=== PATIENT | female | born 2000 | race Caucasian/White ===

== ENCOUNTER 2024-04-05 16:08 | Inpatient (IN) | payer OTHER, SELFPAY ==
[2024-04-05] VITALS (15 sets, daily range): BP systolic 123–141; BP diastolic 61–102; PULSE 87–112; RESP 14–18; TEMP 37–37.7; O2SAT 98–99; BMI 32.7
[2024-04-05 16:43] LABS: ROM Internal Control Test YES-OK TO RESULT pt. (Internal QC)
[2024-04-05 16:44] LABS: ROM Patient Test POSITIVE (Negative)
[2024-04-05 16:58] LABS: Absolute Neutrophil Count 7.2 X10^3/uL (2.0-7.7); Basophil# 0.02 X10^3/uL; Basophil% 0.2 % (0-1); Eosinophil# 0.05 X10^3/uL; Eosinophils% 0.5 % (0-5); Hematocrit 37.9 % (37-47); Hemoglobin 11.6 g/dL (12.0-15.0); Lymphocyte % 21.6 % (19-41); Mean Corp Hgb Conc 30.6 g/dL (32-36); Mean Corpuscular Volume 81.7 fL (81-99); Mean Platelet Vol. 12.4 fl (6.2-12.0); Monocyte# 0.66 X10^3/uL; Monocyte% 6.5 % (0-10); NRBC Flagged by Analyzer 0 % (0-5); Neutrophil % 70.5 % (47-70); Platelet Count 220 K/mm3 (150-450); RBC Distribution Width CV 15.3 % (11.6-14.6); RBC Distribution Width SD 44.3 fl (35.1-43.9); Red Blood Count 4.64 M/mm3 (4.2-5.4); White Blood Count 10.2 K/mm3 (4.4-11.0)
[2024-04-05] MEDS: Lactated Ringers 1,000 ML 999 ML IV (17:00)
[2024-04-05 17:11] LABS: AST(SGOT) 15 U/L (15-37); Alanine Aminotransfer ALT/SGPT 15 U/L (13-56); EST Glomerular Filtration Rate 110 mL/min (>60); Est Glom Filt Rate - Afr Amer 133 mL/min (>60); Estimated Creatinine Clearance 147.76 ml/min; Uric Acid 3.9 mg/dL (2.6-6.0)
[2024-04-05 17:38] LABS: Syphilis Antibodies Non-reactive
[2024-04-05 18:18] LABS: Protein, Urine (Random) 17.9 mg/dL (<11.9); Protein:Creat Ratio 199 mg/g CRE (0-200)
[2024-04-05] MEDS: Oxytocin 10 UNITS/ML Vial IM (19:05)
[2024-04-05] MEDS: Oxytocin 15 Units/NS 250ml 15 UNITS/250 ML IV.SOLN 83 UNITS IV (19:10)
--- NOTE | 2024-04-05 20:48 | PCM.HP.OB ---
HPI - General General Date of Admission: 04/05/24 HPI Narrative RAJANI DO, is a 24 F who presents at at 39w4d in active labor with SROM. Maternal Data Information ANTOINE Calculator Estimated Delivery Date Method Current WG Current Estimate 04/08/24 Manual 39w 4d PFSH PFSH Allergy/AdvReac Type Severity Reaction Status Date / Time No Known Allergies Allergy Verified 04/05/24 20:10 Social History Smoking Status: Never smoker History Elective abortions Hx Para 0 Spontaneous abortions Hx # Term Pregnancies Ectopic pregnancies Hx # Pregnancies Multiple births # of living children NST FHR Rate Baby A Baseline: 155 Variability:: Moderate Accelerations:: 15 x 15 Decelerations:: None FHR Category:: Category I Uterine Activity:: every 3 minutes, strong Vital Signs Vital Signs Vital Signs: 04/05/24 15:54 04/05/24 15:54 04/05/24 15:54 Temperature Temperature Source Pulse Rate 93 Respiratory Rate Blood Pressure 135/102 H BP Systolic 135 BP Diastolic 102 Pulse Ox 99 04/05/24 15:54 04/05/24 15:54 04/05/24 15:54 Temperature Temperature Source Temporal Pulse Rate 93 Respiratory Rate 14 Blood Pressure BP Systolic BP Diastolic Pulse Ox 04/05/24 15:54 04/05/24 15:54 04/05/24 15:55 Temperature 98.6 F Temperature Source Pulse Rate Respiratory Rate Blood Pressure 139/92 H BP Systolic 139 BP Diastolic 92 Pulse Ox 99 04/05/24 15:55 04/05/24 17:32 04/05/24 17:32 Temperature Temperature Source Pulse Rate 87 112 H Respiratory Rate Blood Pressure 133/87 H BP Systolic 133 BP Diastolic 87 Pulse Ox 04/05/24 17:33 04/05/24 17:33 04/05/24 19:15 Temperature 99.2 F H Temperature Source Pulse Rate Respiratory Rate 16 Blood Pressure 123/69 H BP Systolic 123 BP Diastolic 69 Pulse Ox 04/05/24 19:15 04/05/24 19:31 04/05/24 19:31 Temperature Temperature Source Pulse Rate 106 H 95 Respiratory Rate Blood Pressure 132/88 H BP Systolic 132 BP Diastolic 88 Pulse Ox 04/05/24 19:32 04/05/24 19:32 04/05/24 19:32 Temperature Temperature Source Temporal Pulse Rate 99 Respiratory Rate Blood Pressure BP Systolic BP Diastolic Pulse Ox 98 04/05/24 19:32 04/05/24 19:32 04/05/24 19:32 Temperature 99.9 F H Temperature Source Temporal Pulse Rate Respiratory Rate 16 Blood Pressure BP Systolic BP Diastolic Pulse Ox 04/05/24 19:32 04/05/24 19:32 04/05/24 19:46 Temperature 99.9 F H Temperature Source Pulse Rate Respiratory Rate 16 Blood Pressure 137/77 H BP Systolic 137 BP Diastolic 77 Pulse Ox 04/05/24 19:46 04/05/24 19:46 04/05/24 19:46 Temperature Temperature Source Pulse Rate 96 Respiratory Rate 16 16 Blood Pressure BP Systolic BP Diastolic Pulse Ox 04/05/24 20:00 04/05/24 20:00 04/05/24 20:00 Temperature Temperature Source Pulse Rate 96 Respiratory Rate 18 Blood Pressure 131/75 H BP Systolic 131 BP Diastolic 75 Pulse Ox 04/05/24 20:00 04/05/24 20:15 04/05/24 20:15 Temperature Temperature Source Pulse Rate 90 Respiratory Rate 18 Blood Pressure 134/78 H BP Systolic 134 BP Diastolic 78 Pulse Ox 04/05/24 20:15 04/05/24 20:30 04/05/24 20:30 Temperature Temperature Source Pulse Rate 90 Respiratory Rate 16 Blood Pressure 141/65 H BP Systolic 141 BP Diastolic 65 Pulse Ox 04/05/24 20:45 04/05/24 20:45 Temperature Temperature Source Pulse Rate 91 Respiratory Rate Blood Pressure 135/61 H BP Systolic 135 BP Diastolic 61 Pulse Ox Weight Weight: 209 lb Body Mass Index (BMI) 32.7 Physical Exam Const alert and oriented x3 General Appearance: cooperative Orientation / Consciousness: awake, oriented to person, oriented to place and oriented to time Exam Limitations: no limitations HEENT normocephalic Head and Scalp: normal to inspection, normocephalic and atraumatic Face and Sinus: normal facial exam Eyes General Eye: normal appearance of both eyes Neck full ROM Chest Chest: symmetrical chest wall rise Resp normal respiratory effort GI normal to inspection, nondistended, normoactive bowel sounds and non-tender appearance of the vagina normal Bladder / Kidney Exam: no CVA tenderness Back/Spine normal ROM Extremity normal to inspection and full ROM Skin no rashes or lesions noted Neuro oriented x3 and moves all extremities Sensorium / Orientation: awake, alert and oriented to person Labs Labs Labs: Blood Type O POSITIVE Antibody Screen NEGATIVE Hct 37.9 % (37-47) Hgb 11.6 g/dL (12.0-15.0) L Syphilis Total Ab Non-reactive RPR negative 1hr GCT negative Rubella Immune HBsAG negative HepC negative HIV negative O positive GC/CT negative Assessment & Plan (1) Active labor at term: (2) SROM (spontaneous rupture of membranes): PLAN: Plan 1) Admit to labor and delivery 2) Routine labs 3) Continuous EFM 4) Would like unmedicated 5) collaborative physician and notified of patient status, above assessment, and plan.
--- NOTE | 2024-04-05 20:53 | OB.VAGDELI_ITS ---
Maternal Data Information ANTOINE Calculator Estimated Delivery Date Method Current WG Current Estimate 04/08/24 Manual 39w 4d Vaginal Delivery Maternal Presentation Maternal Presentation: Active Labor and Spontaneous Rupture of Membranes Vaginal Delivery Information Procedure Performed: Spontaneous Vaginal Delivery Date of Procedure: 04/05/24 Pre-Procedure Diagnosis: SROM, active labor at term Post-Procedure Diagnosis: , first degree perineal laceration Type of anesthesia: None Estimated Blood Loss: 300 ml Time of Delivery: 19:01 Findings Description of procedure: Progressed to complete with urge to push. Unmedicated. of viable male infant over first degree perineal laceration. APGARS 8,9 respectively. Infant head delivered with body not forthcoming, McRobert's position and body delivered, mild shoulder dystocia. Placed on maternal abdomen, strong cry. Mouth and nares suctioned for secretions. Pitocin started for active 3rd stage management. Cord doubly clamped and cut by FOB after pulsations ceased, delayed cord clamping. Placenta delivered intact via lyon, 3 vessel cord intact. Perineum inspected and revealed first degree perineal laceration. Repaired with 3.0 vicryl rapide, without anesthesia with patient consent. Fundus firm and hemostasis achieved. EBL 300 ml. Mom and baby stable, planning to breastfeed. Hollie snow bonding well. notified of delivery. Presentation: Vertex and LUPE Amniotic Membrane Rupture Type: Spontaneous Amniotic Fluid Description: Clear Placental Delivery Description: Spontaneous Placenta Disposition: [facility] Specimen collected: No Cord Vessel Description: 3 Vessels Cord Entanglement: None Infant A Gender: Male (1 minute): 8 (5 minute): 9 Delayed Cord Clamping: Yes Post Vaginal Deli Medications given after delivery: IM Pitocin Episiotomy Description: None Laceration: Perineal Extension/lac and 1st degree Complication Complications: Yes Complication Details: mild shoulder dystocia, resolved with Nancie
[2024-04-05] MEDS: 0.9% Saline Lock 10 ML Syringe IV (22:16)
[2024-04-06 01:15] VITALS: BP 137/93; PULSE 102; RESP 16; TEMP 37.4; O2SAT 100
[2024-04-06 04:40] VITALS: BP 129/94; PULSE 116; RESP 16; TEMP 37.2; O2SAT 98
[2024-04-06 04:55] LABS: Absolute Neutrophil Count 11.9 X10^3/uL (2.0-7.7); Basophil# 0.02 X10^3/uL; Basophil% 0.1 % (0-1); Eosinophil# 0.01 X10^3/uL; Eosinophils% 0.1 % (0-5); Hematocrit 28.5 % (37-47); Hemoglobin 9.1 g/dL (12.0-15.0); Lymphocyte % 10.5 % (19-41); Mean Corp Hgb Conc 31.9 g/dL (32-36); Mean Corpuscular Hgb 25.7 pg (27.0-32.0); Mean Corpuscular Volume 80.5 fL (81-99); Mean Platelet Vol. 12.5 fl (6.2-12.0); Monocyte# 0.81 X10^3/uL; Monocyte% 5.7 % (0-10); NRBC Flagged by Analyzer 0 % (0-5); Neutrophil # 11.86 X10^3/uL (2.7-7.7); Neutrophil % 83.2 % (47-70); Platelet Count 189 K/mm3 (150-450); RBC Distribution Width CV 15.3 % (11.6-14.6); RBC Distribution Width SD 44.1 fl (35.1-43.9); Red Blood Count 3.54 M/mm3 (4.2-5.4); White Blood Count 14.3 K/mm3 (4.4-11.0)
[2024-04-06 08:30] VITALS: BP 127/100; PULSE 100; RESP 16; TEMP 36.9
[2024-04-06 12:00] VITALS: BP 130/103; PULSE 120; RESP 16; TEMP 37
--- NOTE | 2024-04-06 12:54 | PN.OBGYN_ITS ---
Subjective Subjective Patient seen this AM at bedside and doing well. She offers no complaints. Pain/cramping controlled. Ambulating and voiding without difficulty. Lochia normal. David diet without N/V. Denies lightheadedness, dizziness, CP, SOB, leg pain. Objective Data Objective Data Vital Signs: Vital Signs Temp Pulse Resp BP Pulse Ox O2 Del Method 98.6 F 120 H 16 130/103 H 98 Room Air 04/06/24 12:00 04/06/24 12:00 04/06/24 12:00 04/06/24 12:00 04/06/24 04:40 04/06/24 04:40 Oxygen Delivery Method Room Air Weight: 209 lb Body Mass Index (BMI) 32.7 Intake & Output: Intake and Output for Last 24 Hours 04/04/24 04/05/24 04/06/24 23:59 22:59 23:59 Intake Total 832.83 / 832.83 Output Total 900 / 900 300 / 300 Balance -67.17 / -67.17 -300 / -300 Lab / Micro Data 04/06/24 04:45 04/05/24 16:30 Labs: Laboratory Results - last 24 hr 04/05/24 16:00: Vag Amniotic Fld Detect POSITIVE H 04/05/24 16:30: WBC 10.2, RBC 4.64, Hgb 11.6 L, Hct 37.9, MCV 81.7, MCH 25.0 L, MCHC 30.6 L, RDW Std Deviation 44.3 H, RDW Coeff of Melissa 15.3 H, Plt Count 220, M PV 12.4 H, Immature Gran % (Auto) 0.700, Neut % (Auto) 70.5 H, Lymph % (Auto) 21.6, [place] % (Auto) 6.5, Eos % (Auto) 0.5, Baso % (Auto) 0.2, Absolute Neuts (auto) 7.2, Absolute Lymphs (auto) 2.20, Nucleated RBC % 0, Creatinine 0.70, Estim Creat Clear Calc 147.76, Est GFR (MDRD) Af Amer 133, Est GFR (MDRD) Non-Af 110, Uric Acid 3.9, AST 15, ALT 15, Syphilis Total Ab Non-reactive, Blood Type O POSITIVE, Antibody Screen NEGATIVE 04/05/24 17:45: U Random Total Protein 17.9 H, Urine Creatinine 90.00, Protein/Creatinin Ratio 199 04/06/24 04:45: WBC 14.3 H, RBC 3.54 L, Hgb 9.1 L, Hct 28.5 L, MCV 80.5 L, MCH 25.7 L, MCHC 31.9 L, RDW Std Deviation 44.1 H, RDW Coeff of Melissa 15.3 H, Plt Count 189, MPV 12.5 H, Immature Gran % (Auto) 0.400, Neut % (Auto) 83.2 H, Lymph % (Auto) 10.5 L, [place] % (Auto) 5.7, Eos % (Auto) 0.1, Baso % (Auto) 0.1, A bsolute Neuts (auto) 11.9 H, Absolute Lymphs (auto) 1.50, Nucleated RBC % 0 Physical Exam Const alert and no apparent distress General Appearance: comfortable HEENT normocephalic Resp normal respiratory effort GI soft to palpation, non-tender and non-distended GI Narrative: FF@U-2 Extremity normal to inspection and no calf tenderness Assessment & Plan (1) Vaginal delivery: PLAN: PPD#1 s/p . Doing well. Routine care. Anticipate discharge tomorrow.
[2024-04-06 15:31] VITALS: BP 125/89; PULSE 105; RESP 16; TEMP 36.9
[2024-04-06 20:00] VITALS: BP 133/92; PULSE 105; RESP 16; TEMP 36.7; O2SAT 98
--- NOTE | 2024-04-06 20:46 | DCINST_ITS ---
Discharge Instructions Diet Discharge Diet: No restrictions Activity Discharge Activity: May Drive and May Shower May resume sexual activity in: 6 weeks (nothing in the vagina) Ice area for (Minutes): 15 Weight Bearing Status: Weight bearing as tolerated Lifting Restrictions: nothing heavier than baby Dressing / Incision Call your doctor if you observe: Fever of 101 or Higher, Inability to urinate, Inability to have a bowel movement, Using more than 1 pad per hour, Shortness of breath, Dizziness, Fainting spells, Swelling in the ankles, Chest pain, Increased palpitations (irregular heartbeat), Calf discomfort and Uncontrolled pain Cleanse incision/area with: Soap & Water Follow Up Care Please Follow Up With: Kaitlyn Rothman CNM When: This week for a blood pressure check 6 week exam Test Results: Test results from this visit will be discussed in further detail at your follow- up appointment, if applicable. Discharge Plan Admission Admit Date/Time: 04/05/24 16:08 Primary Reason for Your Visit: delivery Attending Provider: Kaitlyn Rothman Primary Care Provider: Care Physician,Katia Primary Instructions Patient Instructions: After a Vaginal Discharge Orders/Prescriptions Referrals / Follow Up: Care Physician,No Primary [Primary Care Provider] - Disposition Disposition (needs filled in before D/C Order can be placed): Home, Self Care
== END 2024-04-06 21:50 | disposition home or self-care (01) | DRG 807 ==
LOC: WPOUT 16:19 → WP 16:19
PROVIDERS: Admitting Provider Advanced Practice Midwife; Referring Provider Advanced Practice Midwife; Visit Provider Advanced Practice Midwife
DX: O66.0 Obstructed labor due to shoulder dystocia (principal); Z37.0 Single live birth; O70.0 First degree perineal laceration during delivery; Z3A.39 39 weeks gestation of pregnancy
CPT/HCPCS: 59025; 59050; 82565; 82570; 84112; 84156; 84450; 84460; 84550; 85025; 86780; 86850; 86900; 86901; 99221; J7120; A4216; G0378